=== PATIENT | male | born 1955 | race Two or more races ===

== ENCOUNTER 2017-03-30 13:56 | Emergency (ER) | payer OTHER ==
[~2017-03-30] VITALS: Ht 175.3 cm; Wt 79.4 kg
[2017-03-30] MEDS ORDERED: Acetaminophen 500mg (ES) tab PO ONE (14:45)
[2017-03-30 15:45] VITALS: BP 159/76
[2017-03-30] MEDS ORDERED: TYLENOL EXTRA500 MG ORAL (15:47)
[2017-03-30 16:00] VITALS: BP 159/76
--- NOTE | 2017-03-31 11:25 | Diagnostic Imaging Report ---
Indication: PAIN Technique: 3 views of the lumbar spine Comparison: None Findings:There are mild degenerative proliferative changes. Bony alignment is normal. No acute fractures. No dislocations. Vertebral body heights and disc spaces are preserved. The extraspinal soft tissues are unremarkable Impression:Mild degenerative changes. No acute bony trauma
--- NOTE | 2017-03-31 21:15 | Emergency Room Report ---
History of Present Illness General Chief Complaint: Multiple Trauma/Fall Source: Patient, EMS Present Illness HPI 62-year-old male presents ED complaining of back pain and left hip pain. States today at work he had a slip and fall on the floor. Landed on his back. Denies hitting his head or LOC. Is here complaining of left hip pain and back pain. Throbbing. It of 10. Nonradiating. Notes pain but is able to walk. Denies any other injuries. No other aggravating or relieving factors. Denies any other associated symptom Allergies: Coded Allergies: No Known Allergies (Unverified , 03/30/17) Patient History Past Medical History: DM Past Surgical History: none Pertinent Family History: none Social History: Denies: alcohol use, drug use, smoking Immunizations: UTD Reviewed Nursing Documentation: PMH: Agreed, PSxH: Agreed Nursing Documentation-PMH Past Medical History: No History, Except For Hx Hypertension: Yes Hx Diabetes: Yes Review of Systems All Other Systems: negative except mentioned in HPI Physical Exam Vital Signs Date Time Temp Pulse Resp B/P Pulse Ox O2 Delivery O2 Flow Rate FiO2 03/30/17 14:06 98.1 76 20 159/76 99 Room Air Sp02 EP Interpretation: reviewed, normal General Appearance: no apparent distress, alert, GCS 15, non-toxic Head: normocephalic, atraumatic Eyes: bilateral eye PERRL, bilateral eye normal inspection ENT: normal ENT inspection, hearing grossly normal Neck: normal inspection Respiratory: normal inspection Cardiovascular #1: normal inspection Gastrointestinal: normal inspection Rectal: deferred Genitourinary: no CVA tenderness, vertebral tenderness Musculoskeletal: normal range of motion, tender - L hip, L proximal femur Neurologic: alert, oriented x3, responsive, motor strength/tone normal, sensory intact, speech normal Psychiatric: normal inspection Skin: normal inspection Lymphatic: normal inspection Medical Decision Making Diagnostic Impression: Primary Impression: Contusion, hip Qualified Codes: S70.02XA - Contusion of left hip, initial encounter Additional Impression: Back pain due to injury ER Course Hospital Course 62-year-old M presents to ED complaining of back and L hip pain s/p trip and fall Differential diagnoses include: Fracture, dislocation, sprain, contusion Clinical course Patient placed on stretcher. After initial history and physical, I ordered pain medications and Xrays of L spine, L hip and L femur Xrays prelim read shows no acute fracture/dislocation. On reassessment pain is improved Diagnosis -hip contusion, back pain Stable and discharged to home with prescription for tylenol . apply ice, keep elevated. weight bear as tolerated. Followup with PMD. Return to ED if symptoms recur or worsen Other X-Ray Diagnostic Results Other X-Ray Diagnostic Results : X-Ray Ordered: L spine, L hip, L femur EP Interpretation: Yes Findings: no fractures, no dislocation, no soft tissue swelling Number of Views: 3 Other Impression L-spine-No fracture, no dislocation, no soft tissue swelling Left hip-No fracture, no dislocation, no soft tissue swelling Left femur-No fracture, no dislocation, no soft tissue swelling Last Vital Signs Date Time Temp Pulse Resp B/P Pulse Ox O2 Delivery O2 Flow Rate FiO2 03/30/17 16:00 98.1 20 159/76 99 Room Air 03/30/17 14:06 76 Status: improved Disposition: HOME, SELF-CARE Condition: Stable Scripts Acetaminophen* (TYLENOL EXTRA STRENGTH*) 500 Mg Tablet 500 MG ORAL Q8H Y for Prn Headache/Temp > 101, #30 TAB 0 Refills Prov: GREGORY MARCANO M.D. 03/30/17 Departure Forms: Return to Work Return to Work Date: April 01, 2017 Work Restrictions: No Heavy Lifting Patient Instructions: Contusion GREGORY MARCANO M.D. March 31, 2017 21:15
--- NOTE | 2017-04-01 09:15 | Diagnostic Imaging Report ---
Indications: PAIN Technique: Two views of the left femur Comparison: None Findings: No acute fractures. No dislocations. The joint spaces are preserved. Impression: Negative
--- NOTE | 2017-04-01 09:15 | Diagnostic Imaging Report ---
Indication: PAIN Technique: 2 views of the left hip Comparison: None Findings: No acute fractures. No dislocations. There is some osteophytic buttressing of the left acetabulum, but the joint space is preserved Impression: No acute process
== END 2017-03-30 16:05 | disposition home or self-care (01) ==
LOC: EMR 14:20
DX: S70.02XA Contusion of left hip, initial encounter (principal); S39.82XA Other specified injuries of lower back, initial encounter; W01.0XXA Fall on same level from slipping, tripping and stumbling without subsequent striking against object, initial encounter; Y92.511 Restaurant or cafe as the place of occurrence of the external cause; Y99.0 Civilian activity done for income or pay; E11.9 Type 2 diabetes mellitus without complications; I10 Essential (primary) hypertension
CPT/HCPCS: 72020; 73502; 99284